=== PATIENT | female | born 1935 | race Caucasian/White ===

== ENCOUNTER 2020-05-06 05:59 | Day surgery (SDC) | payer OTHER, SELFPAY ==
[~2020-05-06 05:59] MED LIST: ACET325 PO; AMIODARONE HCL200 M1 PO; ASPI81EC PO; ATEN25 PO; ATOR40TA PO; ATOR80; CALPHO600 PO; CEPH500 PO; DILT120 PO; ERGO400 PO; ERGO50000 PO; FISH OIL 1,2001 EAC1 PO; FISH1000 PO; FURO40 PO; HYDCHL25 PO; LOSA50 PO; LOSHYD; METO50ER PO; NITR.4SL SL; OLME40 PO; OMEP20ER PO; Omeprazole20 M1 PO; POTA10T PO; Pravachol40 MG PO; ROSU10TA PO; Vitamin D2000 UNIT PO; WARF4 PO; [UNRECOGNIZED DRUG - REMARK]
[2020-05-06 07:05] LABS: International Normalized Ratio 2.49; Prothrombin Time Results 25.3 Sec (9.7-11.5)
--- NOTE | 2020-05-06 07:14 | NUR ---
DR DAHL IN ROOM TO SEE PT.
--- NOTE | 2020-05-06 07:19 | NUR ---
DR POPE IN ROOM. TIME OUT COMPLETE.
--- NOTE | 2020-05-06 07:39 | NUR ---
200 J SYNCHRONISED SHOCK DELIVERED AT 0722; PT TOLERATED WELL.
--- NOTE | 2020-05-06 08:12 | NUR ---
SARAH MONTERROSO IN COUMADIN CLINIC DIRECTED TO CHANGE COUMADIN TO 2 MG PO ONCE DAILY WITH INR CHECK ON May.13.
--- NOTE | 2020-05-06 08:57 | NUR ---
DISCHARGE INSTRUCTIONS REVIEWED ALL QUESTIONS ANSWERED. 20 G IV DISCONTINUED FROM RIGHT AC WITH INTACT CANNULA. PT ESCORTED OUT VIA WHEELCHAIR ESCORT.
== END 2020-05-06 23:45 ==
LOC: MHTC 05:59
PROVIDERS: Internal Medicine Cardiovascular Disease
DX: I48.0 Paroxysmal atrial fibrillation (principal); I11.0 Hypertensive heart disease with heart failure; I50.32 Chronic diastolic (congestive) heart failure; E11.9 Type 2 diabetes mellitus without complications; G47.33 Obstructive sleep apnea (adult) (pediatric); E87.6 Hypokalemia; I95.9 Hypotension, unspecified; K21.9 Gastro-esophageal reflux disease without esophagitis; E78.5 Hyperlipidemia, unspecified; Z79.01 Long term (current) use of anticoagulants; R07.9 Chest pain, unspecified; Z79.899 Other long term (current) drug therapy; Z95.0 Presence of cardiac pacemaker; Z87.891 Personal history of nicotine dependence
CPT/HCPCS: 85610; 92960; 93005; 93010; J2370; J2704; J7030

== ENCOUNTER 2021-03-13 06:54 | Day surgery (SDC) | payer OTHER ==
--- NOTE | 2021-03-13 09:00 | NUR ---
PT VERBALIZED UNDERSTANDING OF WRITTEN AND VERBAL D/C INST. IV REMOVED. PT TAKEN OUT OF THE HRT CENTER VIA W/C.
== END 2021-03-14 22:59 | disposition home or self-care (01) ==
LOC: MHTC 06:54 → ORSCSDS 08:00 → ORD 08:00 → MHTC 03-14 22:59
DX: I48.92 Unspecified atrial flutter (principal)
CPT/HCPCS: 92960; 93005; 93010; J7030

== ENCOUNTER 2021-08-25 06:17 | Day surgery (SDC) | payer OTHER ==
[~2021-08-25] VITALS: Ht 152.4 cm; Wt 89.0 kg
[~2021-08-25 06:17] MED LIST changes: +PRAV20 PO; -Pravachol40 MG PO
[2021-08-25] MEDS ORDERED: TORSE20 PO (07:02)
[2021-08-25] MEDS ORDERED: SPIR25 PO (07:02)
--- NOTE | 2021-08-25 08:07 | NUR ---
PT TOLERATES CARDIOVERSION WELL. VSS. NADN. PT VERBALIZES UNDERSTANDING WRITTEN INSTRUCTIONS. PT IV DC'D. CATH INTACT. PRESSURE DSG IN PLACE. PT DC TO HOME VIA WC
== END 2021-08-25 23:06 | disposition home or self-care (01) ==
LOC: MHTC 06:17
DX: I48.0 Paroxysmal atrial fibrillation (principal); I48.4 Atypical atrial flutter; I44.4 Left anterior fascicular block; Z95.0 Presence of cardiac pacemaker; G47.33 Obstructive sleep apnea (adult) (pediatric); I11.9 Hypertensive heart disease without heart failure; E78.5 Hyperlipidemia, unspecified; E11.9 Type 2 diabetes mellitus without complications
CPT/HCPCS: 92960; 93005; 93010; J2370; J2704; J7030

== ENCOUNTER 2021-08-30 20:13 | Emergency (ER) | payer OTHER ==
[~2021-08-30] VITALS: Ht 152.4 cm; Wt 88.5 kg
[~2021-08-30 20:13] MED LIST changes: +SPIR25 PO; +TORSE20 PO
== END 2021-08-30 21:30 | disposition home or self-care (01) ==
LOC: ER 20:13
DX: R07.89 Other chest pain (principal); S60.511A Abrasion of right hand, initial encounter; W01.0XXA Fall on same level from slipping, tripping and stumbling without subsequent striking against object, initial encounter; R06.02 Shortness of breath; I10 Essential (primary) hypertension; E78.5 Hyperlipidemia, unspecified; Z79.01 Long term (current) use of anticoagulants; Z79.899 Other long term (current) drug therapy; Z95.0 Presence of cardiac pacemaker; Z87.891 Personal history of nicotine dependence
CPT/HCPCS: 71101

== ENCOUNTER 2023-03-02 06:07 | Day surgery (SDC) | payer OTHER ==
[2023-03-02] VITALS (7 sets, daily range): BP systolic 92–123; BP diastolic 61–93
[~2023-03-02] VITALS: Ht 149.9 cm; Wt 88.0 kg
[2023-03-02] MEDS ORDERED: DRON400T PO (06:30)
--- NOTE | 2023-03-02 07:42 | NUR ---
PT AND DAUGHTER VERBALIZED UNDERSTANDING OF WRITTEN AND VERBAL D/C INST. IV REMOVED. PT IN A PACED RYTHM AT 60BPM ON D/C.
== END 2023-03-02 22:41 | disposition home or self-care (01) ==
LOC: MHTC 06:07
DX: I48.0 Paroxysmal atrial fibrillation (principal); Z95.0 Presence of cardiac pacemaker; I50.30 Unspecified diastolic (congestive) heart failure; E11.9 Type 2 diabetes mellitus without complications; E78.5 Hyperlipidemia, unspecified; G47.33 Obstructive sleep apnea (adult) (pediatric)
CPT/HCPCS: 92960; 93005; 93010; J7030

== ENCOUNTER → 2023-04-21 | Outpatient (CLI) | payer OTHER ==
[~2023-04-21] MED LIST changes: +DRON400T PO
[2023-04-21 12:26] LABS: Source, Urine Clean Catch
[2023-04-21 13:32] LABS: Appearance, Urine Cloudy (Clear); Bilirubin, Urine Neg (Neg); Blood, Urine 2+ (Neg); Color, Urine Yellow (P-Yellow); Glucose Qualitative, Urine Neg (Neg); Ketones, Urine Neg (Neg); Leukocyte Esterase, Urine 3+ (Neg); Nitrite, Urine Pos (Neg); Protein, Urine 2+ (Neg); Specific Gravity, Urine 1.015 (1.003-1.022); Urobilinogen, Urine NORM (Normal)
[2023-04-21 13:46] LABS: Bacteria Many /hpf; Squamous Epithelial Cells Few /hpf (Few); White Blood Cells, Urine 50-100 /hpf (0-5)
== END | disposition home or self-care (01) ==
LOC: LAB 12:20 → LAB SHORT 12:20 → LAB FUT 04-19 11:30 → EDSTATUS 04-19 11:30
PROVIDERS: Hospitalist
DX: N18.31 Chronic kidney disease, stage 3a (principal)
CPT/HCPCS: 81001; 87077; 87086; 87186

== ENCOUNTER 2024-10-21 19:12 | Emergency (ER) | payer OTHER ==
[~2024-10-21] VITALS: Ht 162.6 cm; Wt 81.7 kg
[~2024-10-21 19:12] MED LIST changes: +Amiodarone HCl200 MG PO
[2024-10-21] MEDS ORDERED: Lidocaine 2% Viscous Soln 15 ML UDC PO ONE (19:30)
[2024-10-21 19:35] LABS: BASOPHILS ABSOLUTE AUTO 0.07 K/mm3 (0.00-0.23); BASOPHILS PERCENT AUTO 1 % (0-2); EOSINOPHILS ABSOLUTE AUTO 0.21 K/mm3 (0.00-0.68); EOSINOPHILS PERCENT AUTO 4 % (0-6); Hematocrit 44.8 % (33.0-51.0); Hemoglobin 14.3 g/dL (11.5-16.0); IMMATURE GRAN ABSOLUTE AUTO 0.01 K/mm3 (0.00-0.10); IMMATURE GRAN PERCENT AUTO 0 % (0-1); LYMPHOCYTES ABSOLUTE AUTO 1.45 K/mm3 (0.84-5.20); LYMPHOCYTES PERCENT AUTO 24 % (21-46); MONOCYTES ABSOLUTE AUTO 0.63 K/mm3 (0.16-1.47); MONOCYTES PERCENT AUTO 11 % (4-13); Mean Corpuscular HGB Conc 31.9 g/dL (31.5-36.5); Mean Corpuscular Volume 90 fL (80-100); NEUTROPHILS ABSOLUTE AUTO 3.57 K/mm3 (1.96-9.15); NEUTROPHILS PERCENT AUTO 60 % (41-73); NRBC ABSOLUTE 0.00 K/mm3 (0.00-0.02); NRBC Auto 0.0 /100 WBC (0.0-0.2); Platelet Count 308 K/mm3 (150-400); RDW Coefficient Variation 15.7 % (11.7-14.2); RDW Standard Deviation 50.8 fL (35.1-46.3)
[2024-10-21 19:51] LABS: Alanine Aminotransfer (ALT/SGP 37.0 U/L (12-78); Albumin, Blood 3.4 g/dL (3.4-5.0); Albumin/Globulin Ratio 0.7 (0.8-1.8); Anion Gap 7.0 mmol/L (3-11); Aspartate Aminotrans (AST/SGOT 11.0 U/L (12-37); Bilirubin, Total 0.2 mg/dL (0.1-1.0); Blood Urea Nitrogen 29.0 mg/dL (8-24); CO2, Blood 28.0 mmol/L (21-32); Calcium, Blood 8.7 mg/dL (8.5-10.1); Chloride, Blood 106.0 mmol/L (98-108); Creatinine, Blood 1.37 mg/dL (0.40-1.00); Globulin, Blood 5.0 g/dL (2.2-4.0); Glucose, Blood 116.0 mg/dL (70-99); Potassium, Blood 4.7 mmol/L (3.5-5.5); Sodium, Blood 136.0 mmol/L (136-145); Total Protein, Blood 8.4 g/dL (6.4-8.2)
[2024-10-21 22:54] LABS: Prothrombin Time Results 24.7 Sec (9.7-11.5)
[2024-10-22] VITALS: BP 132/70
== END 2024-10-22 00:11 | disposition home or self-care (01) ==
LOC: ER 19:12
PROVIDERS: Student in an Organized Health Care Education/Training Program
DX: R10.10 Upper abdominal pain, unspecified (principal); I48.91 Unspecified atrial fibrillation; K21.9 Gastro-esophageal reflux disease without esophagitis; I13.0 Hypertensive heart and chronic kidney disease with heart failure and stage 1 through stage 4 chronic kidney disease, or unspecified chronic kidney disease; I50.9 Heart failure, unspecified; N18.30 Chronic kidney disease, stage 3 unspecified; E78.5 Hyperlipidemia, unspecified; Z79.01 Long term (current) use of anticoagulants; Z87.891 Personal history of nicotine dependence
CPT/HCPCS: 71046; 76705; 80053; 83690; 84484; 85025; 85610; 93005; 93010; 99284-25; A9270

== ENCOUNTER 2025-01-15 18:32 | Inpatient (IN) | payer OTHER ==
[~2025-01-15] VITALS: Ht 152.4 cm; Wt 81.0 kg
[~2025-01-15 18:32] MED LIST changes: -ZINC GLUCONATE PO
[2025-01-15] MEDS ORDERED: CefTRIAXone Sodium 1,000 MG in NS 100 ML IV ONE (19:55)
[2025-01-15] MEDS ORDERED: FLU VACC TS2025(65UP)/MF59C/PF 45 MCG/0.5 ML SYRINGE IM SCH (22:00)
[2025-01-15] MEDS ORDERED: NS 1,000 ML IV SCH (22:00)
[2025-01-16 00:12] VITALS: BP 140/68
[2025-01-16 01:55] LABS: Campylobacter Sp Detected (NOT DETECT); E. Coli O157 Not Detected (NOT DETECT); Enteroaggregative E. coli-EAEC Not Detected (NOT DETECT); Enteropathogenic E. coli-EPEC Not Detected (NOT DETECT); Enterotoxigenic E. coli-ETEC Not Detected (NOT DETECT); Salmonella Sp Not Detected (NOT DETECT); Shiga Toxin-prod E. coli-STEC Not Detected (NOT DETECT); Shigella/Enteroin E. coli-EIEC Not Detected (NOT DETECT); Vibrio Sp Not Detected (NOT DETECT)
[2025-01-16 03:22] LABS: BASOPHILS ABSOLUTE AUTO 0.05 K/mm3 (0.00-0.23); BASOPHILS PERCENT AUTO 1 % (0-2); EOSINOPHILS ABSOLUTE AUTO 0.01 K/mm3 (0.00-0.68); EOSINOPHILS PERCENT AUTO 0 % (0-6); Hematocrit 31.4 % (33.0-51.0); Hemoglobin 10.1 g/dL (11.5-16.0); IMMATURE GRAN ABSOLUTE AUTO 0.04 K/mm3 (0.00-0.10); IMMATURE GRAN PERCENT AUTO 1 % (0-1); LYMPHOCYTES ABSOLUTE AUTO 0.65 K/mm3 (0.84-5.20); LYMPHOCYTES PERCENT AUTO 7 % (21-46); MONOCYTES ABSOLUTE AUTO 1.17 K/mm3 (0.16-1.47); MONOCYTES PERCENT AUTO 13 % (4-13); Mean Corpuscular HGB Conc 32.2 g/dL (31.5-36.5); Mean Corpuscular Volume 89 fL (80-100); NEUTROPHILS ABSOLUTE AUTO 6.93 K/mm3 (1.96-9.15); NEUTROPHILS PERCENT AUTO 78 % (41-73); NRBC ABSOLUTE 0.00 K/mm3 (0.00-0.02); NRBC Auto 0.0 /100 WBC (0.0-0.2); Platelet Count 269 K/mm3 (150-400); RDW Coefficient Variation 17.1 % (11.7-14.2); RDW Standard Deviation 55.8 fL (35.1-46.3)
[2025-01-16 03:39] LABS: Anion Gap 10.0 mmol/L (3-11); Blood Urea Nitrogen 21.0 mg/dL (8-24); CO2, Blood 21.0 mmol/L (21-32); Calcium, Blood 7.7 mg/dL (8.5-10.1); Chloride, Blood 109.0 mmol/L (98-108); Creatinine, Blood 1.15 mg/dL (0.40-1.00); Glucose, Blood 112.0 mg/dL (70-99); Potassium, Blood 3.2 mmol/L (3.5-5.5); Sodium, Blood 137.0 mmol/L (136-145)
[2025-01-16 03:40] LABS: Prothrombin Time Results 18.2 Sec (9.7-11.5)
--- NOTE | 2025-01-16 04:53 | NUR ---
SHIFT SUMMARY 89 YR F ADMITTED ON 01/15/25. FULL CODE. PT IS A&O X 4 AND IS ABLE TO MAKE HER NEEDS KNOWN. SHE WAS ACCOMPANIED BY FAMILY UPON ARRIVAL TO MEDICAL FLOOR. DIARRHEA APPEARS TO HAVE SLOWED OR STOPPED PT HAS NOT HAD TO USE THE RESTROOM SINCE HER ARRIVAL. PT IS CURRENTLY ON 3L O2 BY GA AND MAINTAINING SATS WNL. RA IS HER BASELINE. ONCE PT GOT SETTLED IN SHE WENT TO SLEEP And appears to have rested comfortably for the rest og the shift. 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 she should have restarted it 2 days ago but had not. PHARMACY CALCULATED A NEW DOSE BASED ON CURRENT INR AND PT WILL RESTART IT THIS A.M. PT BED IN LOW POSITION FOR SAFETY AND CALL LIGHT IN REACH.
[2025-01-16 06:15] VITALS: BP 102/78
[2025-01-16 07:11] VITALS: BP 112/63
[2025-01-16] MEDS ORDERED: Lactobacil 2-S.Thermo-Bifido 1 1 Cap PO SCH (09:00)
[2025-01-16] MEDS ORDERED: Calcium Carbonate 1,250 MG TABLET PO SCH (09:00)
[2025-01-16] MEDS ORDERED: Cholecalciferol 1000 Unit Tablet (=25MCG) PO SCH (09:00)
[2025-01-16] MEDS ORDERED: Zinc Sulfate 220 MG Cap (Provides 50MG) PO SCH (09:00)
--- NOTE | 2025-01-16 12:42 | NUR ---
PHYSICIAN CONTACT- INCREASED O2 NEEDS. PT AMBULATED TO THE BATHROOM WITH ELECTRIC CLOCK MECHANIC, ON THE WAY BACK TO BED, PT BECAME VERY SOB. AIDE INCREASED O2 TO 5L AND REPORTED EVENT TO RN. O2 SATS WERE IN THE LOW-MID 80S, O2 WAS REPLACED WITH HIGH FLOW NC AND O2 WAS INCREASED TO 11L. PT SATS INCREASED TO 90-92%. PT STATED SHE FELT LESS SOB AFTER THIS. DR. BOONE NOTIFIED OF EVENTS. ORDER TO DC IV FLUIDS VIA TELEPHONE. STATES HE WILL PLACE OTHER ORDERS. CONT PULSE OX ALSO PLACED ON THE PATIENT.
[2025-01-16 14:05] LABS: Albumin, Blood 2.3 g/dL (3.4-5.0); Anion Gap 11 mmol/L (3-11); Blood Urea Nitrogen 22 mg/dL (8-24); CO2, Blood 23 mmol/L (21-32); Calcium, Blood 8.0 mg/dL (8.5-10.1); Chloride, Blood 105 mmol/L (98-108); Creatinine, Blood 1.18 mg/dL (0.40-1.00); Glucose, Blood 160 mg/dL (70-99); Phosphorus, Blood 1.7 mg/dL (2.5-4.9); Potassium, Blood 3.2 mmol/L (3.5-5.5); Sodium, Blood 136 mmol/L (136-145)
[2025-01-16] MEDS ORDERED: Potassium Phosphate Dibasic 10 MM in Dextrose 5% 250 ML IV STA (14:59)
[2025-01-16 15:47] LABS: Anti-Xa UFH, PHA Monitoring <0.10 IU/mL; Prothrombin Time Results 20.3 Sec (9.7-11.5)
[2025-01-16] MEDS ORDERED: Heparin Sodium,Porcine/0.5 NS 500 ML IV SCH (16:05)
[2025-01-16 16:34] VITALS: BP 111/62
--- NOTE | 2025-01-16 18:26 | NUR ---
SHIFT SUMMARY PT O2 NEEDS INCREASED TODAY. SEE PREVIOUS NOTE. PT CURRENTLY ON 8L O2 VIA NC. PURE WIK IN PLACE SO THAT PT CAN LIMIT EXERTION AT THIS TIME. PT DESATS TO THE 80S WITH ANY EXERTION. CARDIOLOGY CONSULTED TODAY. ECHO ORDEREED & COMPLETED. MEDS CHANGED, PT IS BEING DIURESSED WITH MULTIPLE MEDS NOW. LITTLE OUTPUT TODAY OVERALL WITH 325CC AND ONE UNMEASURED URINE REPORTED. NO OTHER ACUTE CHANGES IN ASSESSMENT AT THIS TIME. TELEMETRY AND PALLIATIVE CARE CONSULTS PLACED TODAY ALSO. NO OTHER ACUTE CHANGES IN ASSESSMENT AT THIS TIME. VS REVIEW. PT DENIES OTHER NEEDS AT THIS TIME. PT DENIES CP T/O SHIFT.
[2025-01-16 19:48] VITALS: BP 113/63
[2025-01-16] MEDS ORDERED: CefTRIAXone Sodium 1,000 MG in NS 100 ML IV SCH (21:00)
[2025-01-17] VITALS (28 sets, daily range): BP systolic 88–162; BP diastolic 57–103
[2025-01-17 03:24] LABS: Anion Gap 11.0 mmol/L (3-11); Blood Urea Nitrogen 20.0 mg/dL (8-24); CO2, Blood 24.0 mmol/L (21-32); Calcium, Blood 7.3 mg/dL (8.5-10.1); Chloride, Blood 105.0 mmol/L (98-108); Creatinine, Blood 1.32 mg/dL (0.40-1.00); Glucose, Blood 119.0 mg/dL (70-99); Magnesium, Blood 1.6 mg/dL (1.6-2.4); Potassium, Blood 3.5 mmol/L (3.5-5.5); Sodium, Blood 136.0 mmol/L (136-145)
[2025-01-17 03:29] LABS: Prothrombin Time Results 20.1 Sec (9.7-11.5)
[2025-01-17] MEDS ORDERED: Dose Adjust by Pharmacy XX STA (04:02)
--- NOTE | 2025-01-17 04:10 | NUR ---
SHIFT SUMMARY 89 YR F. FULL CODE. PT HAD A CRITICAL TROPONIN OF 157 @ 1935 THAT WAS UP FROM 127 @ 1325. BY 0100 TROPONINS WERE TRENDING DOWN TO 138. PT HAD HAD NO C/O CHEST PAIN OR PRESSURE. PT DID BECOME VERY ANXIOUS AND STATED THAT SHE WAS AFRAID TO GO TO SLEEP AND FORGET TO BREATHE. SHE STATED THAT EVERY BREATH SHE WAS TAKING TOOK A CONSCIENCE EFFORT TO DO SO. SHE BECAME FIXATED ON WATCHING THE O2 MONITOR AND HER SATS WERE DROPPING INTO THE 70'S. HER SON AT BEDSIDE FELT THAT SHE WAS HAVING A PANIC ATTACK. HOSPITALIST WAS NOTIFIED AND HYDROXINE WAS ORDERED AND ADMINISTERED. PT WAS ALSO PUT ON CPAP BY RT PT'S SON STATED THAT SHE USED ONE AT HOME. PT HAD NOT MENTIONED THIS PRIOR. WITH THE CPAP SHE WAS ABLE TO MAINTAIN O2 SATS WNL AND SHE WAS ABLE TO FALL ASLEEP. FAMILY STAYED AT BEDSIDE THROUGHOUT THE NIGHT. HEPARIN HAS REMAINED INFUSING THROUGHOUT THIS SHIFT. NO RX ADJUST BY PAHRMACY. BED IN LOW POSITION FOR SAFETY AND CALL LIGHT IN REACH.
[2025-01-17 05:53] LABS: Hematocrit 33.9 % (33.0-51.0); Hemoglobin 10.9 g/dL (11.5-16.0); Platelet Count 320 K/mm3 (150-400)
[2025-01-17] MEDS ORDERED: Mag Sulfate 1 GM/D5% 100ML 100 ML IV STA (07:40)
[2025-01-17] MEDS ORDERED: Potassium Chloride 10 Meq Tablet SA PO SCH (08:00)
[2025-01-17] MEDS ORDERED: LORazepam 2 MG/ML 1ML Injection IV ONE (08:55)
[2025-01-17] MEDS ORDERED: Potassium Chl 20MEQ/Water100ML 100 ML IV ONE ×2 (10:55→18:00)
[2025-01-17] MEDS ORDERED: NS 250 ML IV PRN (10:55)
[2025-01-17] MEDS ORDERED: ZINC GLUCONATE PO (11:25)
--- NOTE | 2025-01-17 11:37 | NUR ---
TRANSFER NOTE PT TRANSFERRED TO PCU 15 FROM ROOM 339. PT REQUIRING INCREASED OXYGEN DEMAND WITHIN THE LAST COUPLE HOURS WHICH WAS EXACERBATED BY MINIMAL MOVEMENT OF HAVING PT STAND AT EOB TO ATTAIN REQUIRED WEIGHT. RT PLACED PT ON BIPAP, REPORT GIVEN TO LISA REDDY IN PCU. PT STARTED SHIFT ON CPAP 50% FIO2. AFTER STANDING EOB SHE WAS NOT RECOVERING FOR ABOUT 10 MINUTES AND CONTINUED SATTING 80% MAXED BLEED IN CPAP OF 15L. RT CALLED AND PLACED PT ON BIPAP, DR. LYON ORDERED ONE TIME 0.5 MG ATVIAN DUE TO PT ANXIETY RELATED TO MASK. PUREWICK IN PLACE DUE TO INCREASED O2 DEMAND. PT CAME UP TO 90% ON BIPAP BEFORE TRANSFERRING TO PCU. FAMILY AT BEDSIDE AND MADE AWARE OF TRANSFER.
[2025-01-17] MEDS ORDERED: Albuterol 2.5 MG/3 ML VIAL INH PRN (15:20)
[2025-01-17 17:13] LABS: Anion Gap 12.0 mmol/L (3-11); Blood Urea Nitrogen 20.0 mg/dL (8-24); CO2, Blood 24.0 mmol/L (21-32); Calcium, Blood 7.4 mg/dL (8.5-10.1); Chloride, Blood 103.0 mmol/L (98-108); Creatinine, Blood 1.18 mg/dL (0.40-1.00); Glucose, Blood 99.0 mg/dL (70-99); Potassium, Blood 4.1 mmol/L (3.5-5.5); Sodium, Blood 135.0 mmol/L (136-145)
[2025-01-17 18:26] LABS: Influenza A/2009-H1 Not Detected (NOT DETECT); SARS-Cov-2 (COVID-19), BioFire Not Detected (NOT DETECT)
--- NOTE | 2025-01-17 19:27 | NUR ---
ASSUMED CARE/SHIFT SUMMARY: ASSUMED CARE OF PT AT 1600, PT ALERT AND ORIENTED X 4 ON ARRIVAL, ANXIOUS. PRECEDEX STARTED AT 0.2MCG/KG/HR, PT DROWSY, HOWEVER ABLE TO RESPOND TO VERBAL STIMULI. PT DENIES ANY PAIN AT THIS TIME. PT ON BIPAP SETTINGS 12/8, FIO2 85%, RR 30'S, SPO2 92% PT DESATURATES INTO THE 70'S WITH ANY ACTIVITY, SLOW TO RECOVER. PT IN SR WITH HR IN THE 70'S, BP STABLE. PT REMAINS NPO DUE TO BIPAP DEPENDENCY. REDMOND PATENT, DRAINING TO GRAVITY. FAMILY AT BEDSIDE, UPDATED. BEDSIDE REPORT GIVEN TO VERA GONZALEZ. PLAN OF CARE ONGOING.
--- NOTE | 2025-01-17 20:00 | NUR ---
ASSUMPTION OF CARE: ASSUMED CARE AT START OF SHIFT (1899). REPORT RECEIVED FROM DAY SHIFT RN. PT IS DOING WELL AND RESTING IN BED. THEY ARE ALERT AND FOLLOWING COMMANDS. PT DENIES ANY PAIN, CP, OR SOB AT THIS TIME. ON PRECEDEX GTT PER EMR ORDERS. LUNG SOUNDS ARE DIMISHED THROUGHOUT, ON BIPAP: 03/12 95% SPO2 >95%. SINUS RYTHM, PT HAS PACEMAKER IN L UPPPER CHEST SBP:90'S MAP >65 HR: 70'S. IV: PERIPHERAL L FOREARM, POWERGLIDE LUE. REDMOND CATHETER IN PLACED AND DRAINING TO GRAVITY. LINES AND CORDS PLACED OUT OF REACH. CALL LIGHT PLACED WITHIN REACH.
[2025-01-18] VITALS (73 sets, daily range): BP systolic 77–187; BP diastolic 23–102
[2025-01-18 04:15] LABS: BASOPHILS ABSOLUTE AUTO 0.01 K/mm3 (0.00-0.23); BASOPHILS PERCENT AUTO 0 % (0-2); EOSINOPHILS ABSOLUTE AUTO 0.00 K/mm3 (0.00-0.68); EOSINOPHILS PERCENT AUTO 0 % (0-6); Hematocrit 33.3 % (33.0-51.0); Hemoglobin 10.5 g/dL (11.5-16.0); IMMATURE GRAN ABSOLUTE AUTO 0.08 K/mm3 (0.00-0.10); IMMATURE GRAN PERCENT AUTO 1 % (0-1); LYMPHOCYTES ABSOLUTE AUTO 0.34 K/mm3 (0.84-5.20); LYMPHOCYTES PERCENT AUTO 3 % (21-46); MONOCYTES ABSOLUTE AUTO 0.63 K/mm3 (0.16-1.47); MONOCYTES PERCENT AUTO 5 % (4-13); Mean Corpuscular HGB Conc 31.5 g/dL (31.5-36.5); Mean Corpuscular Volume 91 fL (80-100); NEUTROPHILS ABSOLUTE AUTO 10.75 K/mm3 (1.96-9.15); NEUTROPHILS PERCENT AUTO 91 % (41-73); NRBC ABSOLUTE 0.00 K/mm3 (0.00-0.02); NRBC Auto 0.0 /100 WBC (0.0-0.2); Platelet Count 297 K/mm3 (150-400); RDW Coefficient Variation 17.2 % (11.7-14.2); RDW Standard Deviation 58.0 fL (35.1-46.3)
[2025-01-18 04:29] LABS: Prothrombin Time Results 25.8 Sec (9.7-11.5)
[2025-01-18 04:33] LABS: Alanine Aminotransfer (ALT/SGP 37.0 U/L (12-78); Albumin, Blood 1.9 g/dL (3.4-5.0); Albumin/Globulin Ratio 0.4 (0.8-1.8); Anion Gap 11.0 mmol/L (3-11); Aspartate Aminotrans (AST/SGOT 18.0 U/L (12-37); Bilirubin, Total 0.5 mg/dL (0.1-1.0); Blood Urea Nitrogen 24.0 mg/dL (8-24); CO2, Blood 25.0 mmol/L (21-32); Calcium, Blood 7.4 mg/dL (8.5-10.1); Chloride, Blood 108.0 mmol/L (98-108); Creatinine, Blood 1.36 mg/dL (0.40-1.00); Globulin, Blood 4.8 g/dL (2.2-4.0); Glucose, Blood 139.0 mg/dL (70-99); Magnesium, Blood 2.2 mg/dL (1.6-2.4); Potassium, Blood 3.8 mmol/L (3.5-5.5); Sodium, Blood 140.0 mmol/L (136-145); Total Protein, Blood 6.7 g/dL (6.4-8.2)
--- NOTE | 2025-01-18 06:01 | NUR ---
SHIFT SUMMARY: PT IS DOING WELL AND RESTING IN BED. NO ACUTE CHANGES THROUGHOUT THE THE SHIFT. VITAL SIGN REMAIN STABLE. PT WAS ABLE TO SLEEP MOST OF THE NIGHT. PT REMAINS OF BIPAP: 12/8/90% AND SPO2 >95%. PRECEDEX GTT PER EMR ORDERS. REDMOND CATHETER IN PLACE A DRAINING TO GRAVITY. LINES, CORDS, AND TUBE PLACED OUT OF REACH. CALL LIGHT PLACED WITHIN REACH.
[2025-01-18] MEDS ORDERED: Cefepime HCl 1,000 MG in NS 100 ML IV SCH (10:45)
[2025-01-18 19:07] LABS: Influenza A, PCR NEGATIVE (NEGATIVE); Influenza B, PCR NEGATIVE (NEGATIVE); Resp Syncytial Virus, PCR NEGATIVE (NEGATIVE); SARS-Cov-2 (COVID-19) PCR, MMC NEGATIVE (NEGATIVE)
[2025-01-19] VITALS (42 sets, daily range): BP systolic 106–158; BP diastolic 59–87
[2025-01-19 05:01] LABS: Prothrombin Time Results 45.0 Sec (9.7-11.5)
[2025-01-19 05:26] LABS: Anion Gap 11.0 mmol/L (3-11); Blood Urea Nitrogen 47.0 mg/dL (8-24); CO2, Blood 25.0 mmol/L (21-32); Calcium, Blood 7.4 mg/dL (8.5-10.1); Chloride, Blood 113.0 mmol/L (98-108); Creatinine, Blood 1.39 mg/dL (0.40-1.00); Glucose, Blood 172.0 mg/dL (70-99); Potassium, Blood 3.9 mmol/L (3.5-5.5); Sodium, Blood 145.0 mmol/L (136-145)
--- NOTE | 2025-01-19 06:25 | NUR ---
SHIFT SUMMARY PT A/O X4, FOLLOWING COMMANDS APPROP AND ABLE WITH SEVERE GENERALIZED WEAKNESS AND HIGH O2 DEMAND, ON BIPAP. DESATS EXTREMELY FAST WITH ANY ACTIVITY WITH MASK OFF, EVEN WHEN VERY BRIEF FOR TAKING PILLS. FAMILY IN AND OUT T/O NIGHT WHICH HAS HELPED KEEP PT CALM. XANAX GIVEN X1 FOR ANXIETY WITH POSITIVE RESULT. VS OTHERWISE STABLE T/O NIGHT, AFEBRILE. REPOSITIONED FOR COMFORT AT LEAST Q2HR AND PRN. RASHEED UP IN CHAIR TIL BEFORE MIDNIGHT. WILL UPDATE DAY RN WITH ALL OUTSTANDING ISSUES AND PROBLEMS TO DATE.
--- NOTE | 2025-01-19 10:11 | NUR ---
Spiritual care Visit. Pt. is awake in bed and wlecomed my visit. Two young family members are at bedside. Pt. verbalized gratitude for the visit, but her son is her shoe designer. After making spiritual care available the pt. verbalized gratitude for the spiritual care visit.
--- NOTE | 2025-01-19 17:56 | NUR ---
SHIFT SUMMARY NO ACUTE CHANGES THIS SHIFT. PT HAS REMAINED ALERT AND ORIENTED WHEN AWAKE. PT AWAKENS EASILY TO VERBAL STIMULI WHEN RESTING. PT ABLE TO FOLLOW COMMANDS AND MAKE NEEDS KNOWN. PT DENIES PAIN OR DISCOMFORT. PT REMAINS ON BIPAP 12/10, FIO2 TITRATED DOWN TO 60% THIS SHIFT. PT ONLY ABLE TO TOLERATE TIME OFF BIPAP FOR MEDS AND SIPS OF WATER. PT WITHOUT DIFFICULTY SWALLOWING. VITAL SIGNS REMAIN STABLE. PG TO TORRES AND IV TO LFA SALINE LOCKED. REDMOND REMAINS IN PLACE WITH YELLOW URINE OUTPUT NOTED. PT WITH MULTIPLE FAMILY MEMBERS IN THROUGHOUT THE SHIFT. WILL CONTINUE TO MONITOR AND REPORT OFF TO ONCOMING RN.
[2025-01-20] VITALS (42 sets, daily range): BP systolic 120–169; BP diastolic 61–119
[2025-01-20 04:03] LABS: Prothrombin Time Results 67.6 Sec (9.7-11.5)
[2025-01-20 04:18] LABS: BASOPHILS ABSOLUTE AUTO 0.02 K/mm3 (0.00-0.23); BASOPHILS PERCENT AUTO 0 % (0-2); EOSINOPHILS ABSOLUTE AUTO 0.00 K/mm3 (0.00-0.68); EOSINOPHILS PERCENT AUTO 0 % (0-6); Hematocrit 37.4 % (33.0-51.0); Hemoglobin 11.5 g/dL (11.5-16.0); IMMATURE GRAN ABSOLUTE AUTO 0.09 K/mm3 (0.00-0.10); IMMATURE GRAN PERCENT AUTO 1 % (0-1); LYMPHOCYTES ABSOLUTE AUTO 0.25 K/mm3 (0.84-5.20); LYMPHOCYTES PERCENT AUTO 2 % (21-46); MONOCYTES ABSOLUTE AUTO 0.49 K/mm3 (0.16-1.47); MONOCYTES PERCENT AUTO 5 % (4-13); Mean Corpuscular HGB Conc 30.7 g/dL (31.5-36.5); Mean Corpuscular Volume 94 fL (80-100); NEUTROPHILS ABSOLUTE AUTO 10.11 K/mm3 (1.96-9.15); NEUTROPHILS PERCENT AUTO 92 % (41-73); NRBC ABSOLUTE 0.10 K/mm3 (0.00-0.02); NRBC Auto 0.9 /100 WBC (0.0-0.2); Platelet Count 314 K/mm3 (150-400); RDW Coefficient Variation 17.6 % (11.7-14.2); RDW Standard Deviation 61.0 fL (35.1-46.3)
[2025-01-20 04:39] LABS: Albumin, Blood 2.1 g/dL (3.4-5.0); Anion Gap 11 mmol/L (3-11); Blood Urea Nitrogen 49 mg/dL (8-24); CO2, Blood 26 mmol/L (21-32); Calcium, Blood 8.0 mg/dL (8.5-10.1); Chloride, Blood 112 mmol/L (98-108); Creatinine, Blood 1.17 mg/dL (0.40-1.00); Glucose, Blood 173 mg/dL (70-99); Phosphorus, Blood 3.0 mg/dL (2.5-4.9); Potassium, Blood 4.2 mmol/L (3.5-5.5); Sodium, Blood 145 mmol/L (136-145)
--- NOTE | 2025-01-20 05:46 | NUR ---
SHIFT SUMMARY PATIENT SLEPT OFF AN ON THROUGH SHIFT. HAD MULTIPLE FAMILY MEMBERS IN ROOM THROUGH SHIFT. PATIENT HAD SEVERAL BREAKS FROM BIPAP BOTTOM STRAPS UNDONE FOR DRINKS AND EATING AND O2 SATS STAYED ABOVE 90%. A&O X4, AFERIBLE THROUGH SHIFT. HR IN THE 60-70'S AND SBP 130-140'S. BIPAP WITH FULL MASK 12/10/45%. PATIENT HAS REDMOND DRAINING TO GRAVITY. HAS POWERGLIDE IN LEFT UPPER ARM AND 22G PERIPHERAL IN LEFT FOREARM. PATIENT HAS INCISION ON LEFT UPPER CHEST FROM A GENERATOR BEING PLACED THIS MONTH WITH DUAL CHAMBER PACEMAKER, GUAZED REMOVED AND STERI'S IN PLACE. FANILY AT BEDSIDE CALL LIGHT WITHIN REACH.
[2025-01-20] MEDS ORDERED: Cefepime HCl 1,000 MG in NS 100 ML IV SCH (08:30)
--- NOTE | 2025-01-20 16:22 | NUR ---
ASSUMED CARE... ASSUMED CARE OF PT APROX 1600. PT'S VSS. ON BIPAP AT 12/10 AND 45% WITH O2 SATS>90%. PT'S FAMILY IN THE ROOM.
--- NOTE | 2025-01-20 18:28 | NUR ---
SHIFT SUMMARY.... NO ACUTE NEGATIVE CHANGES SINCE THIS RN ASSUMED CARE AT 1600. PT HAS BEEN ON THE AIRVO AT 60L AND 89% WITH O2 SATS>90%, PT WAS ABLE TO EAT AND DRINK WITHOUT ISSUE WHILE ON THE AIRVO. PT PUT HER CALL LIGHT ON TO TRY AND HAVE A BM, PT WAS PLACED ON THE BEDPAN WHILE ON THE AIRVO AND HER SATS QUCIKLY DROPPED DOWN TO THE LOW 70'S, PT WAS PUT BACK ON THE BIPAP TO RECOVER WHICH WAS SLOW, THE 100% BUTTON WAS PUSHED TWICE PIROR TO HER SATS IMPROVING TO >88%. PT HAD A CONT GREEN/BROWN MED BM. REDMOND IS PATENT AND DRAINING TO GRAVITY. PT HAS HAD SEVERAL FAMILY MEMBERS AT THE BEDSIDE T/O THIS SHIFT.
[2025-01-20] MEDS ORDERED: Calcium Carbonate 1,250 MG TABLET PO SCH (21:00)
[2025-01-21] VITALS (36 sets, daily range): BP systolic 130–187; BP diastolic 66–105
[2025-01-21 05:40] LABS: Prothrombin Time Results 66.0 Sec (9.7-11.5)
[2025-01-21 05:43] LABS: Albumin, Blood 2.2 g/dL (3.4-5.0); Anion Gap 11 mmol/L (3-11); Blood Urea Nitrogen 46 mg/dL (8-24); CO2, Blood 29 mmol/L (21-32); Calcium, Blood 8.4 mg/dL (8.5-10.1); Chloride, Blood 112 mmol/L (98-108); Creatinine, Blood 0.91 mg/dL (0.40-1.00); Glucose, Blood 191 mg/dL (70-99); Phosphorus, Blood 2.4 mg/dL (2.5-4.9); Potassium, Blood 4.7 mmol/L (3.5-5.5); Sodium, Blood 147 mmol/L (136-145)
--- NOTE | 2025-01-21 05:49 | NUR ---
SHIFT SUMMARY A/O X 4, FOLLOWS COMMANDS AND ANSWERS QUESTIONS APPROP. REMAINED ON BIPAP T/O NIGHT, 45% FIO2, RASHEED ONLY VERY SHORT BREAKS FOR SWALLOWING PILLS, OCCAS ICE CHIPS. STILL DESATS VERY QUICKLY, OTHERWISE VSS, AFEBRILE. LEFT WRIST 22G PIV REDDENED AND SORE, D/C'D AND ICE PACK PLACED OVER SITE FOR COMFORT. WILL UPDATE DAY RN WITH ALL OUTSTANDING ISSUES AND PROBLEMS TO DATE.
--- NOTE | 2025-01-21 08:00 | NUR ---
ASSUMPTION OF CARE ASSUMED CARE OF PT APPROX 0700. PT REMAINS ON BIPAP 03/14 45% FI02 WITH SATS IN THE MID TO HIGH 90S. RHYTHM IS SINUS ON MONITOR WITH RATE IN THE 60S-70S, BP IS STABLE WITH MAP >65. PT IS A&O X4, ANSWERING QUESTIONS APPROPRIATELY. REDMOND IN PLACE AND DRAINING TO GRAVITY. PT EXPRESSED WISHES TO USE BEDSIDE COMMODE, SHE DESATS QUICKLY WITH EXAGERRATED MOVEMENT STILL AND WAS PLACED ON BEDPAN WITH CALL LIGHT IN REACH. PT UNABLE TO PRODUCE BM AND BEDPAN WAS REMOVED. NO UNMET NEEDS AT THIS TIME. CALL LIGHT WITHIN REACH AND FAMILY AT BEDSIDE.
--- NOTE | 2025-01-21 09:00 | NUR ---
BREAK FROM BIPAP BIPAP WAS REMOVED AND CHANGED TO AIRVO 60L/60% FI02 AT 0800. PT MAINTAINED SATS 93-94% AND TOLERATED WELL. WAS ABLE TO TAKE PO MEDICATIONS WITH YOGURT AND EAT PART OF BREAKFAST. AT APPROX 0830 PT SATS BEGAN DROPPING TO HIGH 80S, FI02 ON AIRVO INCREASED TO 80% AND SATS RETURNED TO 92-94% PT VISITING WITH FAMILY WITH PLAN TO REPLACE BIPAP MASK WHILE SLEEPING.
--- NOTE | 2025-01-21 10:00 | NUR ---
RESUME BIPAP PT TIRING AND READY TO TAKE A NAP. BIPAP RESUMED AT 12/10 45% FI02. SATS >90%.
--- NOTE | 2025-01-21 12:15 | NUR ---
BREAK FROM BIPAP PAUSED BIPAP AND PUT BACK ON AIRVO AT 60L 80% FI02 APPROX 1150 FOR MEDS AND LUNCH TRAY. PT TOLERATED WELL BUT NOT ABLE TO EAT MUCH OF LUNCH TRAY. QUICKLY TIRED APPROX 1210 AND BIPAP WAS RESUMED AT 12/10 45% FI02. PT MAINTAINING SATS >90% AND RESTING IN BED.
[2025-01-21] MEDS ORDERED: Labetalol HCL 5 MG/ML 4ML Injection (Single Dose) IV PRN (17:45)
--- NOTE | 2025-01-21 18:47 | NUR ---
SHIFT SUMMARY PT REMAINS A/O X4, CALM AND COOPERATIVE. ABLE TO FOLLOW DIRECTIONS AND ANSWER QUESTIONS APPROPRIATELY. CONTACT PRECAUTIONS WERE DISCONTINUED TODAY. PT HAD BRIEF EPISODE OF ANXIETY THIS MORNING AND WAS MEDICATED PER MAR AT APPROX 1100. PT REMAINS IN SINUS RHYTHM ON MONITOR WITH RATE IN THE 70S, PT HAS DUAL CHAMBER PACEMAKER IN PLACE THAT HAD A BATTERY REPLACEMENT ON 01/11/25, DO NOT HAVE INTERROGATION INFORMATION INCLUDING SET RATE. BP WAS ELEVATED TODAY WITH SYSTOLIC IN THE 150S-170S, ORDERS WERE PLACED FOR PRN LABETALOL -SEE MAR FOR DETAILS. PT SATS REMAIN >90% ON BIPAP 03/14 45% FI02, WAS ABLE TO TAKE A FEW BREAKS FOR MEALS/VISITING WITH FAMILY ON AIRVO 60L 80% FI02 AND MAINTAIN SATS. PT PRODUCED BM THIS SHIFT, PROVIDED BED BATH WITH LINEE/GOWN CHANGE. BLOOD SUGAR WAS ELEVATED IN THE 200S, ORDERS PLACED TO BEGIN LOW CORRECTION SLIDING SCALE WITH ON STEROID THERAPY -SEE MAR. POWERGLIDE IN BILATER UPPER EXTREMITIES, SALINE LOCKED. REDMOND IN PLACE AND DRAINING PALE YELLOW URINE TO GRAVITY. DENIES UNMET NEEDS AT THIS TIME, FAMILY AT BEDSIDE AND CALL LIGHT WITHIN REACH.
--- NOTE | 2025-01-21 19:47 | NUR ---
ASSUMPTION OF CARE: ASSUMED CARE OF PT AT 1900, PT IS RELAXING IN BED ON AIRVO AND SATS > 92%. SBP'S 140'S AND HR 60'S. PATENT REDMOND DRAINING YELLOW URINE TO GRAVITY. PATENT TORRES AND KAREN PG. PT IS A&OX4 AND ABLE TO ANSWER QUESTIONS. PT REPORTS NO PAIN AND HAS BED LOW AND LOCKED FOR SAFETY.
[2025-01-21] MEDS ORDERED: Insulin Human Lispro 100 Units/ML 3ML Syringe SC SCH (21:00)
[2025-01-22] VITALS (18 sets, daily range): BP systolic 109–177; BP diastolic 65–105
[2025-01-22 03:43] LABS: BASOPHILS ABSOLUTE AUTO 0.02 K/mm3 (0.00-0.23); BASOPHILS PERCENT AUTO 0 % (0-2); EOSINOPHILS ABSOLUTE AUTO 0.00 K/mm3 (0.00-0.68); EOSINOPHILS PERCENT AUTO 0 % (0-6); Hematocrit 37.1 % (33.0-51.0); Hemoglobin 11.6 g/dL (11.5-16.0); IMMATURE GRAN ABSOLUTE AUTO 0.14 K/mm3 (0.00-0.10); IMMATURE GRAN PERCENT AUTO 1 % (0-1); LYMPHOCYTES ABSOLUTE AUTO 0.22 K/mm3 (0.84-5.20); LYMPHOCYTES PERCENT AUTO 2 % (21-46); MONOCYTES ABSOLUTE AUTO 0.55 K/mm3 (0.16-1.47); MONOCYTES PERCENT AUTO 5 % (4-13); Mean Corpuscular HGB Conc 31.3 g/dL (31.5-36.5); Mean Corpuscular Volume 92 fL (80-100); NEUTROPHILS ABSOLUTE AUTO 11.33 K/mm3 (1.96-9.15); NEUTROPHILS PERCENT AUTO 92 % (41-73); NRBC ABSOLUTE 0.04 K/mm3 (0.00-0.02); NRBC Auto 0.3 /100 WBC (0.0-0.2); Platelet Count 301 K/mm3 (150-400); RDW Coefficient Variation 16.9 % (11.7-14.2); RDW Standard Deviation 57.1 fL (35.1-46.3)
[2025-01-22 04:01] LABS: Albumin, Blood 2.2 g/dL (3.4-5.0); Anion Gap 5 mmol/L (3-11); Blood Urea Nitrogen 44 mg/dL (8-24); CO2, Blood 37 mmol/L (21-32); Calcium, Blood 8.2 mg/dL (8.5-10.1); Chloride, Blood 113 mmol/L (98-108); Creatinine, Blood 0.82 mg/dL (0.40-1.00); Glucose, Blood 197 mg/dL (70-99); Phosphorus, Blood 2.1 mg/dL (2.5-4.9); Potassium, Blood 3.6 mmol/L (3.5-5.5); Sodium, Blood 151 mmol/L (136-145)
[2025-01-22 04:06] LABS: Prothrombin Time Results 62.6 Sec (9.7-11.5)
[2025-01-22] MEDS ORDERED: Potassium Phosphate Dibasic 15 MM in Dextrose 5% 250 ML IV ONE (05:30)
--- NOTE | 2025-01-22 06:02 | NUR ---
SHIFT SUMMARY: PT WAS ABLE TO RELAX AND GET SOME SLEEP THIS SHIFT. PT CONTINUES TO BE ON BIPAP AT NIGHT AND SETTINGS REMAIN UNCHANGED AND SPO2 >95%.PT TOLERATED SOME MEDS WW/YOGURT THIS SHIFT. SBP 140-160'S HR 60 W/PVC'S AND A COUPLE SHORT RUNS OF V-TACH 6 BEATS. REDMOND REMAINS PATENT. KAREN AND TORRES PG REMAIN PATENT. PT HAD FAMILY AT BEDSIDE AT BEGINNING OF SHIFT.PT HAS BED LOW AND LOCKED FOR SAFETY AND CALL LIGHT IN REACH.
--- NOTE | 2025-01-22 09:24 | NUR ---
ASSUMPTION OF CARE ASSUMED CARE OF PATIENT AT APPROX 0700. PATIENT A&OX4 AND ABLE TO MAKE NEEDS KNOWN. PATIENT ON BIPAP 14/10 50% FIO2 WITH SOP2 >94%. HR AFIB IN THE 60S-70S. DUAL PACED. BP STABLE WITH MAPS >65. REDMOND PATENT AND DRAINING YELLOW URINE TO GRAVITY. SON AT BEDSIDE. AT APPROX 0745 PATIENT WAS PUT ONTO THE AIRVO TO TAKE MEDICATIONS AND EAT BREAKFAST. AIRVO SETTINGS 55L AND 83% FIO2. PATIENT STAYED ON THE AIRVO UNTIL AFTER BREAKFAST AND BEGAN TO DESAT INTO THE MID 80S. PATIENT PUT BACK ONTO BIPAP AT APPROX 0845. BIPAP SETTING 14/8 65% WITH SPO2 >94%.
[2025-01-22 09:29] LABS: pH Blood Venous 7.39 (7.34-7.37)
[2025-01-22] MEDS ORDERED: Acetaminophen 160MG / 5ML 10.15 UDC PO PRN (12:35)
[2025-01-22] MEDS ORDERED: Atropine Sulfate 1% Opth Soln 2ML BTL SL PRN (12:35)
[2025-01-22] MEDS ORDERED: Morphine Sulfate 10 MG/ML 1MLSYR IV PRN (12:40)
[2025-01-22] MEDS ORDERED: LORazepam 2 MG/ML 1ML Injection IV PRN (12:40)
--- NOTE | 2025-01-22 12:41 | NUR ---
UPDATE PATIENT AND FAMILY SPOKE AT LENGTH WITH DR. RICHARD ABOUT PATIENTS CONDITION. FAMILY AND PATIENT WERE EDUCATED ON OPTIONS AND ULTIMATELY DECIDED TO MAKE THE PATIENT COMFORT CARE.
--- NOTE | 2025-01-22 17:08 | NUR ---
SHIFT SUMMARY PATIENT A&OX4 AND ABLE TO MAKE NEEDS KNOWN. PATIENT TRANSITIONED TO COMFORT CARE TODAY. PATIENT COMPLAINED OF PAIN "ALL OVER" AND WAS MEDICATED PER EMAR. PATIENT REPORTS BEING COMFORTABLE SINCE THEN. HR SINUS, DUAL PACED, IN THE 70S. PATIENT ON AIRVO AT 60L AND 83% FIO2 WITH SPO2 >88%. REDMOND PATENT AND DRAINING YELLOW URINE TO GRAVITY. NO BM THIS SHIFT. PACER INCISION TO LEFT CHEST, C/D/I. POWERGLIDES TO RIGHT AND LEFT UA SALINE LOCKED. FAMILY HAS BEEN AT THE BEDSIDE THROUGHOUT THE SHIFT. CALL LIGHT NEAR.
--- NOTE | 2025-01-22 19:29 | NUR ---
ASSUMED CARE RECIEVED REPORT FROM JACKSON GONZALEZ. PATIENT RESTING IN BED WITH FAMILY AT BEDSIDE DAUGHTER, SON AND GRAND DAUGHTER. PATIENT STATES SHE IS NOT IN PAIN AT THE TIME IS JUST TIRED. AIRVO ON 60L/83%. HAS BILATERAL POWERGLIDES IN UPPER ARMS , BOTH ARE SALINE LOCKED. MORE FAMILY IN LOBBY WHICH ARE COMING IN AND OUT FOR VISITS. PATIENT RECIEVING COMFORT CARE. CALL LIGHT WITHIN REACH OF PATIENT AND FAMILY.
--- NOTE | 2025-01-23 | NUR ---
TRANSFERED OF CARE GAVE REPORT TO CHELSEA GONZALEZ ON MEDICAL FLOOR @ 5457. TRANSFERED PATIENT TO ROOM 308 @ 2330.
--- NOTE | 2025-01-23 04:18 | NUR ---
SHIFT SUMMARY: PT LETHARGIC, AND OPENING EYES FOR PAIN. MEDICATING PER eMAR. PT ON HIFLO NC. FAMILY AT BEDSIDE. CALL LIGHT IS WITHIN REACH.
[2025-01-23] MEDS ORDERED: Morphine Sulfate 20 MG/1ML 1 ML Oral Syringe SL PRN (08:15)
--- NOTE | 2025-01-23 15:50 | NUR ---
SPOKE TO PT THIS AM SHE WANTED TO GET THE AIRVO OFF, BUT SHE NEEDE IT TO FEEL COMFORTABLE. FAMILY PRESENT. PT STATES SHE IS NOT YET READY. MEDS PER EMAR. RT CAME TO SEE THE PT AND REMOVED THE NRB THAT WAS IN PLACE OVER THE AIRVO. MEDICATED WITH ATIVAN AND ROXANOL. PT STATES SHE IS MORE COMFORTABLE (ABOUT 1000) AND IS READY TO SWITCH TO THE LOWER FLOW HFNC. SHE WAS REDUCED TO THE HIGH FLOW NC WITH HUMIDIFIER, PER HER REQUEST, FAMILY PRESENT. PT TOLLERATING WELL. KEEPING UP ON COMFORT MEDS AND FREQUENT CHECKS, Q2 TURNS FOR COMFORT SEEM TO HELP A LOT. PT CURRENTLY APPEARS COMFORTABLE. FAMILY CAME AND ASKED ABOUT TAKING HER HOME ON HOSPICE. CALLED CARE MANAGEMENT TO SEE IF THIS COULD BE POSSIBLE. THEY WILL COME TO SEE THE FAMILY SHORTLY.
--- NOTE | 2025-01-23 19:39 | NUR ---
SHIFT SUMMARY- PT SOMETIMES ANSWERS YES AND NO QUESTIONS. SHE SAYS SMALL SCENTENCES. FAMILY HAS CONVEYED THE DESIRE TO POSSIBLY TAKE HER HOME ON HOSPICE. ALTHOUGH THEY ARE UNSURE WHAT THAT WOULD REQUIRE. THEY HAVE KEPT A FAMILY MEMBER AT THE BEDSIDE CONSTANTLY AND THEY HAVE BEEN ASKED TO NOTIFY STAFF IF THEY BELIEVE THE PT IS UNCOMFORTABLE OR IN ANY DISTRESS. BEDSIDE REPORT COMPLETED WITH THE NIGHT RN. CONVEYED THE Q2 TURN AND FREQUENCY ROXANOL WAS GIVEN. ATIVAN WAS ORDERED 1MG PO. PT HAS RECIEVED 2 DOSES T/O THE DAY TODAY. PT IS IN BED, CALL LIGHT IN REACH, FAMILY AT THE BEDSIDE, NO S&S OF DISTRESS, HOWEVER SHE IS DUE FOR REPOSITION, DISCUSSED WITH THE FAMILY AND NIGHT RN ABOUT MEDICATING THE PT PRIOR TO REPOSITIONING, TO PREVENT THE DISCOMFORT SHE HAS AFTER THE MOVE.
--- NOTE | 2025-01-24 04:25 | NUR ---
SHIFT SUMMARY 89 YR F ON COMFORT CARE. PER FAMILY REQUEST, PT HAS BEEN MEDICATED FOR PAIN AND AGITATION TWICE THIS SHIFT SO FAR. AT LEAST ONE FAMILY MEMBER HAS BEEN IN THE ROOM AT ALL TIMES. PATIENT REPOSITIONED Q2 FOR COMFORT. PT HAS BEEN UNABLE TO VERBALLY COMMUNICATE THIS SHIFT. SHE WILL ANSWER YES AND NO AND SHAKE HER HEAD, BUT DOES NOT APPEAR TO BE ABLE TO SPEAK IN SENTENCES. SHE DOES NOT APPEAR TO BE IN DISTRESS. BED IN LOW POSITION AND CALL LIGHT IN REACH. FAMILY AFFECTIVELY COMMUNICATES WITH STAFF.
--- NOTE | 2025-01-24 09:40 | NUR ---
TOD 0940- PT HAD FAMILY AT THE BEDSIDE. ROM OF THE BLE COMPLETED (SHE STATED YESTERDAY THIS MADE HE FEEL SO MUCH BETTER) THEN SHE WAS ROLLED TO RIGHT SIDE LYING (THIS TENDED TO BE HER FAVORITE SIDE). SHE HAD A CHANGE IN HER BREATHING AND WAS NOW SHOWING SIGNS OF A LITTLE AIR HUNGER. WENT TO GET A SMALL DOSE OD ROXANOL TO TREAT FOR AIR HUNGER. RETURNED TO THE ROOM AND EXPLAINED TO THE FAMILY PRESENT THAT WE WOULD MEDICATE FOR THE NEW BREATHING PATTERN BUT THEY SHOULD CALL IN FAMILY THAT WISH TO BE PRESENT. BEFORE THE COMPUTER LOADED THE PT STOPPED BREATHING. NO PALPABLE PULSE NO RESPIRATIONS WERE HEARD, NO CAROTID PULSE NOTED. CALLED FOR NILDA GONAZLEZ TO VERIFY AND SHE CONFIRMED TOD 0940. PRESENT FAMILY MEMBER CONTACTED THE OTHER FAMILY, NOTIFIED AND WATCHER LOOKOUT TOWER NOTIFIED. JENNA GARNICA WAS SELECTED. WATCHER LOOKOUT TOWER AWARE. FAMILY TOOK ALL BELONGINGS WITH THEM. LINES AND TUBES DC'D AFTER FAMILY LEFT.
--- NOTE | 2025-01-24 09:51 | NUR ---
CALL FROM [facility] THAT PATIENT HAD PASSED. DISCUSSED CASE WITH HER. FAMILY AND SCHOOL [employer] COOK AT BEDSIDE. FAMILY HAS CHOSEN [place] THEIR HOME.
--- NOTE | 2025-01-24 13:09 | NUR ---
DISCHARGE NOTE- PT WAS PICKED UP BY [facility]. NO PERSONAL BELONGINGS LEFT BEHIND.
== END 2025-01-24 09:40 | DRG 193 ==
LOC: ER 18:32 → ICUE 21:57 → MEDS 21:57 → PCU 01-17 09:53 → ICUE 01-17 15:55 → MEDS 01-22 23:11
PROVIDERS: Hospitalist; Internal Medicine Cardiovascular Disease; Internal Medicine Critical Care Medicine; Pharmacist Pharmacotherapy; Student in an Organized Health Care Education/Training Program; ADMIT Hospitalist
PROC: 3E03329 Introduction of Other Anti-infective into Peripheral Vein, Percutaneous Approach (ICD-10-PCS; 2025-01-15)
PROC: 3E02340 Introduction of Influenza Vaccine into Muscle, Percutaneous Approach (ICD-10-PCS; 2025-01-15)
PROC: 5A09457 Assistance with Respiratory Ventilation, 24-96 Consecutive Hours, Continuous Positive Airway Pressure (ICD-10-PCS; principal; 2025-01-17)
PROC: 5A0945A Assistance with Respiratory Ventilation, 24-96 Consecutive Hours, High Flow/Velocity Cannula (ICD-10-PCS; 2025-01-17)
PROC: 0T9B70Z Drainage of Bladder with Drainage Device, Via Natural or Artificial Opening (ICD-10-PCS; 2025-01-17)
DX: J18.9 Pneumonia, unspecified organism (principal); I50.33 Acute on chronic diastolic (congestive) heart failure; J96.01 Acute respiratory failure with hypoxia; J96.02 Acute respiratory failure with hypercapnia; I13.0 Hypertensive heart and chronic kidney disease with heart failure and stage 1 through stage 4 chronic kidney disease, or unspecified chronic kidney disease; E87.1 Hypo-osmolality and hyponatremia; N17.9 Acute kidney failure, unspecified; I48.92 Unspecified atrial flutter; A04.5 Campylobacter enteritis; E87.0 Hyperosmolality and hypernatremia; Z66 Do not resuscitate; Z51.5 Encounter for palliative care; E78.5 Hyperlipidemia, unspecified; I48.0 Paroxysmal atrial fibrillation; K21.9 Gastro-esophageal reflux disease without esophagitis; R54 Age-related physical debility; E87.6 Hypokalemia; I35.0 Nonrheumatic aortic (valve) stenosis; G47.33 Obstructive sleep apnea (adult) (pediatric); E11.22 Type 2 diabetes mellitus with diabetic chronic kidney disease; I27.20 Pulmonary hypertension, unspecified; F41.9 Anxiety disorder, unspecified; E66.9 Obesity, unspecified; E83.42 Hypomagnesemia; N18.32 Chronic kidney disease, stage 3b; D63.1 Anemia in chronic kidney disease; R73.9 Hyperglycemia, unspecified; R79.83 Abnormal findings of blood amino-acid level; T46.2X5A Adverse effect of other antidysrhythmic drugs, initial encounter; T38.0X5A Adverse effect of glucocorticoids and synthetic analogues, initial encounter; Z68.35 Body mass index [BMI] 35.0-35.9, adult; Z23 Encounter for immunization; Z86.79 Personal history of other diseases of the circulatory system; Z95.0 Presence of cardiac pacemaker; Z98.41 Cataract extraction status, right eye; Z98.42 Cataract extraction status, left eye; Z98.890 Other specified postprocedural states; Z90.710 Acquired absence of both cervix and uterus; Z87.42 Personal history of other diseases of the female genital tract; Z87.19 Personal history of other diseases of the digestive system; Z87.891 Personal history of nicotine dependence; Z79.899 Other long term (current) drug therapy; Z79.01 Long term (current) use of anticoagulants
CPT/HCPCS: 0202U; 36415; 71045; 71260; 80048; 80053; 80069; 82803; 82947; 83735; 83880; 84145; 84484; 85014; 85018; 85025; 85049; 85379; 85520; 85610; 85730; 87449; 87507; 87637; 93005; 93010; 93306; 94640; 94660; 94664; 94760; 94762; 96365; 99285-25; A9270; C1751; J0456; J0692; J0696; J1644; J1938; J2060; J2270; J2919; J3475; J3480; J7030; J7050; J7060; Q9967

== ENCOUNTER → 2025-01-15 | Outpatient (CLI) | payer OTHER ==
[~2025-01-15] MED LIST changes: +AMIODARONE HCL100 M3 PO; +ASCO500 PO; -Amiodarone HCl200 MG PO; +DERMACINRX FOL1 EAC2 PO; +FISH OIL 1,0001 EA10 PO; +OYSTER SHELL CALCIUM PO; -Vitamin D2000 UNIT PO; +WARF2 PO; +ZINC GLUCONATE PO; +Zinc Gluconate100 MG PO
[2025-01-15 16:52] LABS: BASOPHILS ABSOLUTE AUTO 0.06 K/mm3 (0.00-0.23); BASOPHILS PERCENT AUTO 1 % (0-2); Hematocrit 39.1 % (33.0-51.0); Hemoglobin 12.8 g/dL (11.5-16.0); LYMPHOCYTES ABSOLUTE AUTO 0.51 K/mm3 (0.84-5.20); LYMPHOCYTES PERCENT AUTO 5 % (21-46); MONOCYTES ABSOLUTE AUTO 0.97 K/mm3 (0.16-1.47); MONOCYTES PERCENT AUTO 9 % (4-13); Mean Corpuscular HGB Conc 32.7 g/dL (31.5-36.5); Mean Corpuscular Volume 89 fL (80-100); NRBC ABSOLUTE 0.00 K/mm3 (0.00-0.02); NRBC Auto 0.0 /100 WBC (0.0-0.2); Platelet Count 303 K/mm3 (150-400); RDW Coefficient Variation 17.1 % (11.7-14.2); RDW Standard Deviation 55.3 fL (35.1-46.3)
[2025-01-15 17:00] LABS: EOSINOPHILS ABSOLUTE AUTO 0.00 K/mm3 (0.00-0.68); EOSINOPHILS PERCENT AUTO 0 % (0-6); IMMATURE GRAN ABSOLUTE AUTO 0.05 K/mm3 (0.00-0.10); IMMATURE GRAN PERCENT AUTO 1 % (0-1); NEUTROPHILS ABSOLUTE AUTO 9.00 K/mm3 (1.96-9.15); NEUTROPHILS PERCENT AUTO 85 % (41-73)
[2025-01-15 17:05] LABS: Alanine Aminotransfer (ALT/SGP 16.0 U/L (12-78); Albumin, Blood 2.7 g/dL (3.4-5.0); Albumin/Globulin Ratio 0.5 (0.8-1.8); Anion Gap 17.0 mmol/L (3-11); Aspartate Aminotrans (AST/SGOT 10.0 U/L (12-37); Bilirubin, Total 0.9 mg/dL (0.1-1.0); Blood Urea Nitrogen 18.0 mg/dL (8-24); CO2, Blood 23.0 mmol/L (21-32); Calcium, Blood 8.6 mg/dL (8.5-10.1); Chloride, Blood 101.0 mmol/L (98-108); Creatinine, Blood 1.28 mg/dL (0.40-1.00); Globulin, Blood 5.1 g/dL (2.2-4.0); Glucose, Blood 114.0 mg/dL (70-99); Magnesium, Blood 1.8 mg/dL (1.6-2.4); Potassium, Blood 3.4 mmol/L (3.5-5.5); Sodium, Blood 138.0 mmol/L (136-145); Total Protein, Blood 7.8 g/dL (6.4-8.2)
== END ==
LOC: LAB SHORT 16:47 → LAB 16:47
PROVIDERS: Family Medicine
DX: A09 Infectious gastroenteritis and colitis, unspecified (principal)
CPT/HCPCS: 80053; 83735; 85025